=== PATIENT | male | born 1965 | race African-American/Black ===

== ENCOUNTER 2019-08-29 14:02 | Inpatient (IN) | payer MEDICAID ==
[~2019-08-29] VITALS: Ht 182.9 cm; Wt 100.2 kg
[2019-08-29] MEDS ORDERED: SODIUM CHLORIDE 0.9% 1,000 ML IV ONE (14:37)
[2019-08-29] MEDS ORDERED: DILTIAZEM HCL 5MG/ML 5ML VIAL IV ONE (15:15)
[2019-08-29] MEDS ORDERED: ASPIRIN 81MG TABLET PO ONE (15:30)
[2019-08-29 15:52] LABS: CLARITY URINE CLEAR (CLEAR); COLOR URINE YELLOW (YELLOW); KETONES URINE NEGATIVE (NEGATIVE); LEUKOCYTE ESTERASE URINE NEGATIVE (NEGATIVE); NITRITE URINE NEGATIVE (NEGATIVE); OCCULT BLOOD URINE NEGATIVE (NEGATIVE); PROTEIN URINE NEGATIVE (NEGATIVE); SPECIFIC GRAVITY URINE 1.008 (1.005-1.030); UROBILINOGEN URINE 0.2 E.U./dL (0.2-1.0)
[2019-08-29 16:04] LABS: BASOPHILS % 0.7 % (0.0-2.0); EOSINOPHILS % 2.6 % (0.0-5.0); HEMATOCRIT. 42.6 % (42.0-52.0); HEMOGLOBIN. 14.6 g/dL (14.0-18.0); LYMPHOCYTES % 33.5 % (20.0-50.0); MEAN CORPUSCULAR HEMOGLOBIN 29.8 pg (28.0-32.0); MEAN CORPUSCULAR VOLUME 86.8 fL (80.0-94.0); MONOCYTES % 7.3 % (2.0-8.0); NEUTROPHILS % 55.9 % (40.0-76.0); PLATELET 162 x1000/uL (130-400); RED BLOOD CELL COUNT 4.91 mill/uL (4.7-6.1); RED CELL DISTRIBUTION WIDTH 14.8 % (11.6-14.6)
[2019-08-29 16:07] LABS: *AMPHETAMINES SCREEN URINE NEGATIVE (NEGATIVE)
[2019-08-29 16:08] LABS: *BARBITURATES SCREEN URINE NEGATIVE (NEGATIVE); *BENZODIAZEPINES SCREEN URINE NEGATIVE (NEGATIVE); *COCAINE SCREEN URINE NEGATIVE (NEGATIVE); CANNABINOID URINE SCREEN PRESUMTIVE POSITIVE (NEGATIVE); METHADONE URINE SCREEN NEGATIVE (NEGATIVE); OPIATES URINE SCREEN NEGATIVE (NEGATIVE)
[2019-08-29 16:09] LABS: PHENCYCLIDINE URINE SCREEN NEGATIVE (NEGATIVE)
[2019-08-29 16:14] LABS: CHLORIDE 110 mEq/L (98-107)
[2019-08-29 16:22] LABS: ETHANOL BLOOD < 10 mg/dL
[2019-08-29 16:26] LABS: T4 FREE 1.04 ng/dL (0.76-1.46)
[2019-08-29] MEDS ORDERED: IPRATROPIUM/ALBUTEROL 0.5-3(2.5)MG/3ML NEB NEB PRN (18:00)
[2019-08-29] MEDS ORDERED: ACETAMINOPHEN 325MG TABLET PO PRN (18:00)
[2019-08-29] MEDS ORDERED: MAGNESIUM/ALUMINUM HYDROXIDE/SIMETHICONE 30ML UDC PO PRN (18:00)
[2019-08-29] MEDS ORDERED: DOCUSATE SODIUM 100MG CAPSULE PO PRN (18:00)
[2019-08-29] MEDS ORDERED: NITROGLYCERIN 0.4MG TABLET SL SL PRN (18:00)
[2019-08-29] MEDS ORDERED: LORAZEPAM 0.5MG TABLET PO PRN (18:00)
[2019-08-29] MEDS ORDERED: CLONIDINE 0.1MG TABLET PO PRN (18:00)
[2019-08-29] MEDS ORDERED: ONDANSETRON HCL 4MG/2ML INJ IV PRN (18:00)
[2019-08-29] MEDS ORDERED: GUAIFENESIN 200MG/10ML SUGAR FREE UDC PO PRN (18:00)
[2019-08-29 18:52] VITALS: BP 150/90
[2019-08-29] MEDS ORDERED: KETOROLAC 15MG/ML VIAL IV PRN (19:02)
[2019-08-29] MEDS ORDERED: BENA10TA74 MT (19:04)
[2019-08-29] MEDS ORDERED: ATOR20TA65 MT (19:04)
[2019-08-29] MEDS ORDERED: OMEP20CA14 MT (19:04)
[2019-08-29 19:14] VITALS: BP 159/90
[2019-08-29] MEDS ORDERED: INFLUENZA VIRUS VACCINE(AFLURIA) 0.5ML SYR IM ONE (20:00)
[2019-08-29 20:16] VITALS: BP 165/69
[2019-08-29 20:21] VITALS: BP 148/92
[2019-08-29] MEDS ORDERED: ZOLPIDEM TARTRATE 5MG TABLET PO PRN (21:00)
[2019-08-29] MEDS: DILTIAZEM HCL 60MG TABLET PO SCH (21:19)
[2019-08-29] MEDS: ENOXAPARIN 30MG/0.3ML SYR SUBCUT SCH (21:20)
[2019-08-29] MEDS: FAMOTIDINE 20MG TABLET PO SCH (21:27)
[2019-08-30 00:20] VITALS: BP 111/71
[2019-08-30] MEDS: DILTIAZEM HCL 60MG TABLET PO SCH ×2 (00:36→06:14)
[2019-08-30 00:42] LABS: CREATINE KINASE MB FRACTION 1.8 ng/mL (0.5-3.6)
[2019-08-30 03:30] VITALS: BP 138/69
[2019-08-30 06:55] LABS: CREATINE KINASE MB FRACTION 1.7 ng/mL (0.5-3.6)
[2019-08-30 08:00] VITALS: BP 124/92
[2019-08-30] MEDS: FAMOTIDINE 20MG TABLET PO SCH ×2 (09:07→21:22)
[2019-08-30] MEDS: ASPIRIN 325MG EC TABLET PO SCH (09:07)
[2019-08-30] MEDS: ENOXAPARIN 30MG/0.3ML SYR SUBCUT SCH ×2 (09:15→21:24)
[2019-08-30 11:30] LABS: CHLORIDE 112 mEq/L (98-107)
[2019-08-30 12:00] VITALS: BP 148/88
[2019-08-30] MEDS: METOPROLOL TARTRATE 50MG TABLET PO SCH ×2 (12:43→21:22)
[2019-08-30 16:00] VITALS: BP 150/91
[2019-08-30 20:00] VITALS: BP 142/95
[2019-08-31] VITALS: BP 135/88
[2019-08-31 04:00] VITALS: BP 124/85
[2019-08-31 08:00] VITALS: BP 124/81
[2019-08-31] MEDS: METOPROLOL TARTRATE 50MG TABLET PO SCH (09:00)
[2019-08-31] MEDS: ASPIRIN 325MG EC TABLET PO SCH (09:15)
[2019-08-31] MEDS: FAMOTIDINE 20MG TABLET PO SCH (09:15)
[2019-08-31] MEDS: ENOXAPARIN 30MG/0.3ML SYR SUBCUT SCH (09:16)
[2019-08-31 12:00] VITALS: BP 135/95
== END 2019-08-31 14:51 | disposition home or self-care (01) | DRG 201 ==
LOC: ER 14:02 → 6WST 16:35 → EDBEDREQ 16:37 → EDBEDREQTM 16:37 → ENRESERV 17:45
PROVIDERS: ADMIT Internal Medicine; ATTEND Internal Medicine
DX: I47.1 Supraventricular tachycardia (principal); E87.8 Other disorders of electrolyte and fluid balance, not elsewhere classified; E11.9 Type 2 diabetes mellitus without complications; E66.9 Obesity, unspecified; I10 Essential (primary) hypertension; F12.10 Cannabis abuse, uncomplicated; E78.00 Pure hypercholesterolemia, unspecified; F51.04 Psychophysiologic insomnia; F17.210 Nicotine dependence, cigarettes, uncomplicated; Z68.30 Body mass index [BMI] 30.0-30.9, adult
CPT/HCPCS: 36415; 71045; 80048; 80053; 80061; 80305; 80320; 81003; 82550; 82553; 83036; 83735; 83880; 84439; 84443; 84484; 85025; 90686; 93005; 93306; 93970; 96374; 99291; J1650; J2405; J3490; J7030; G0480

== ENCOUNTER 2021-05-16 10:27 | Emergency (ER) | payer MEDICAID ==
[~2021-05-16] VITALS: Ht 170.2 cm; Wt 82.0 kg
[~2021-05-16 10:27] MED LIST: ATOR20TA65 MT; OMEP20CA14 MT
[2021-05-16 11:06] LABS: BASOPHILS % 0.9 % (0.0-2.0); EOSINOPHILS % 6.6 % (0.0-5.0); HEMATOCRIT. 43.2 % (42.0-52.0); HEMOGLOBIN. 14.5 g/dL (14.0-18.0); LYMPHOCYTES % 39.4 % (20.0-50.0); MEAN CORPUSCULAR HEMOGLOBIN 29.3 pg (28.0-32.0); MEAN CORPUSCULAR VOLUME 87.2 fL (80.0-94.0); MEAN PLATELET VOLUME 9.5 fl (7.4-10.4); MONOCYTES % 8.1 % (2.0-8.0); PLATELET 159 x1000/uL (130-400); RED BLOOD CELL COUNT 4.96 mill/uL (4.7-6.1)
[2021-05-16 11:11] LABS: CHLORIDE 109 mEq/L (98-107)
[2021-05-16 12:18] LABS: CLARITY URINE CLEAR (CLEAR); COLOR URINE YELLOW (YELLOW); KETONES URINE NEGATIVE (NEGATIVE); LEUKOCYTE ESTERASE URINE NEGATIVE (NEGATIVE); NITRITE URINE NEGATIVE (NEGATIVE); OCCULT BLOOD URINE NEGATIVE (NEGATIVE); PROTEIN URINE NEGATIVE (NEGATIVE); SPECIFIC GRAVITY URINE 1.009 (1.005-1.030); UROBILINOGEN URINE 0.2 E.U./dL (0.2-1.0)
[2021-05-16 12:44] VITALS: BP 162/99
[2021-05-16 13:08] LABS: METHADONE URINE SCREEN NEGATIVE (NEGATIVE); OPIATES URINE SCREEN NEGATIVE (NEGATIVE)
[2021-05-16 13:09] LABS: *AMPHETAMINES SCREEN URINE NEGATIVE (NEGATIVE); *BARBITURATES SCREEN URINE NEGATIVE (NEGATIVE); *BENZODIAZEPINES SCREEN URINE NEGATIVE (NEGATIVE); *COCAINE SCREEN URINE NEGATIVE (NEGATIVE); CANNABINOID URINE SCREEN PRESUMTIVE POSITIVE (NEGATIVE); PHENCYCLIDINE URINE SCREEN NEGATIVE (NEGATIVE)
== END 2021-05-16 12:50 | disposition home or self-care (01) ==
LOC: ER 10:51
DX: I47.1 Supraventricular tachycardia (principal); I10 Essential (primary) hypertension; E11.9 Type 2 diabetes mellitus without complications; Z98.890 Other specified postprocedural states
CPT/HCPCS: 36415; 71045; 80053; 80305; 81003; 83880; 84484; 85025; 93005; 99285

== ENCOUNTER 2021-11-10 10:03 | Emergency (ER) | payer MEDICAID ==
[~2021-11-10] VITALS: Ht 177.8 cm; Wt 100.0 kg
[2021-11-10 10:42] LABS: BASOPHILS % 0.7 % (0.0-2.0); EOSINOPHILS % 7.3 % (0.0-5.0); HEMATOCRIT. 40.8 % (42.0-52.0); HEMOGLOBIN. 13.5 g/dL (14.0-18.0); LYMPHOCYTES % 38.3 % (20.0-50.0); MEAN CORPUSCULAR HEMOGLOBIN 28.5 pg (28.0-32.0); MEAN CORPUSCULAR VOLUME 86.2 fL (80.0-94.0); MONOCYTES % 11.4 % (2.0-8.0); NEUTROPHILS % 42.3 % (40.0-76.0); PLATELET 148 x1000/uL (130-400); RED BLOOD CELL COUNT 4.74 mill/uL (4.7-6.1); RED CELL DISTRIBUTION WIDTH 17.1 % (11.6-14.6)
[2021-11-10 10:52] LABS: CHLORIDE 110 mEq/L (98-107); PARTIAL THROMBOPLASTIN TIME 30.7 sec (23.4-31.0); PROTHROMBIN TIME 10.5 sec (9.6-11.0)
[2021-11-10 10:57] LABS: ETHANOL BLOOD < 10 mg/dL
[2021-11-10 11:10] LABS: *AMPHETAMINES SCREEN URINE NEGATIVE (NEGATIVE)
[2021-11-10 11:11] LABS: *BARBITURATES SCREEN URINE NEGATIVE (NEGATIVE); *BENZODIAZEPINES SCREEN URINE NEGATIVE (NEGATIVE); *COCAINE SCREEN URINE NEGATIVE (NEGATIVE); METHADONE URINE SCREEN NEGATIVE (NEGATIVE); OPIATES URINE SCREEN NEGATIVE (NEGATIVE); PHENCYCLIDINE URINE SCREEN NEGATIVE (NEGATIVE)
[2021-11-10 11:12] LABS: CANNABINOID URINE SCREEN PRESUMTIVE POSITIVE (NEGATIVE)
[2021-11-10 12:01] VITALS: BP 152/103
== END 2021-11-10 12:06 | disposition home or self-care (01) ==
LOC: ER 10:03 → CANBEDREQ 20:20
DX: I47.1 Supraventricular tachycardia (principal); I10 Essential (primary) hypertension; E11.9 Type 2 diabetes mellitus without complications; Z20.822 Contact with and (suspected) exposure to COVID-19; Z98.890 Other specified postprocedural states
CPT/HCPCS: 36415; 71045; 80053; 80305; 80320; 83735; 83880; 84484; 85025; 87426; 93005; 99284; G0480

== ENCOUNTER 2022-10-20 23:40 | Inpatient (IN) | payer MEDICAID ==
[~2022-10-20] VITALS: Ht 172.7 cm; Wt 106.6 kg
[2022-10-21 01:08] LABS: BASOPHILS % 0.6 % (0.0-2.0); EOSINOPHILS % 5.5 % (0.0-5.0); HEMATOCRIT. 40.5 % (42.0-52.0); HEMOGLOBIN. 13.4 g/dL (14.0-18.0); MEAN CORPUSCULAR HEMOGLOBIN 28.7 pg (28.0-32.0); MEAN CORPUSCULAR VOLUME 87.1 fL (80.0-94.0); MEAN PLATELET VOLUME 8.1 fl (7.4-10.4); MONOCYTES % 7.4 % (2.0-8.0); NEUTROPHILS % 59.5 % (40.0-76.0); PLATELET 157 x1000/uL (130-400); RED BLOOD CELL COUNT 4.65 mill/uL (4.7-6.1); RED CELL DISTRIBUTION WIDTH 15.8 % (11.6-14.6)
[2022-10-21 01:14] LABS: CHLORIDE 108 mEq/L (98-107)
[2022-10-21] MEDS ORDERED: HYDRALAZINE 20MG/ML VIAL IV ONE (01:45)
[2022-10-21] MEDS ORDERED: LABETALOL 5MG/ML SYR 20 MG/4 ML SYRINGE IV ONE (03:15)
[2022-10-21] MEDS ORDERED: DIPHENHYDRAMINE 50MG/ML VIAL IV PRN (10:00)
[2022-10-21] MEDS ORDERED: IPRATROPIUM/ALBUTEROL 0.5-3(2.5)MG/3ML NEB HHN PRN (10:00)
[2022-10-21] MEDS ORDERED: ONDANSETRON HCL 4MG/2ML INJ IV PRN (10:00)
[2022-10-21] MEDS ORDERED: ALBUTEROL (0.083%) 2.5MG/3ML NEB HHN PRN (10:15)
[2022-10-21] MEDS ORDERED: IPRATROPIUM BROMIDE (0.02%) 0.5MG/2.5ML NEB HHN PRN (10:15)
[2022-10-21] MEDS: CLONIDINE 0.1MG TABLET PO PRN (10:30)
[2022-10-21] MEDS ORDERED: DEXTROSE 50% WATER 50ML SYRINGE IV PRN (10:45)
[2022-10-21] MEDS: BLOOD SUGAR DIAGNOSTIC STRIP TEST SCH ×3 (12:01→21:11)
[2022-10-21] MEDS ORDERED: ENOXAPARIN 100MG/ML SYR SUBCUT SCH (13:00)
[2022-10-21] MEDS: INSULIN LISPRO 100 UNITS/ML SUBCUT SCH ×3 (13:51→21:00)
[2022-10-21 15:02] LABS: T4 FREE 1.05 ng/dL (0.76-1.46)
[2022-10-21 15:56] LABS: PROTHROMBIN TIME 10.9 sec (9.6-11.0)
[2022-10-21] MEDS ORDERED: RIVA20TA MT ×2 (16:09→17:37)
[2022-10-21] MEDS ORDERED: METF-873 MT (16:09)
[2022-10-21 16:29] VITALS: BP 155/106
[2022-10-21 17:00] VITALS: BP 155/106
[2022-10-21] MEDS: DILTIAZEM HCL 30MG TABLET PO SCH ×2 (17:04→23:38)
[2022-10-21] MEDS: METFORMIN HCL 500MG TABLET PO SCH (17:04)
[2022-10-21] MEDS ORDERED: ATOR40TA70 MT (17:37)
[2022-10-21] MEDS ORDERED: GLIM2TAB30 MT (17:37)
[2022-10-21] MEDS ORDERED: MULT-622 MT (17:37)
[2022-10-21] MEDS ORDERED: METF-416 MT (17:37)
[2022-10-21] MEDS ORDERED: BENA10TA74 MT (17:37)
[2022-10-21] MEDS ORDERED: METO-385 MT (17:37)
[2022-10-21 18:47] LABS: HEPATITIS B SURFACE ANTIGEN NEGATIVE
[2022-10-21 20:00] VITALS: BP 138/97
[2022-10-21] MEDS ORDERED: ATORVASTATIN CALCIUM 20MG TABLET PO SCH (21:00)
[2022-10-21] MEDS: METOPROLOL TARTRATE 50MG TABLET PO SCH (21:11)
[2022-10-21] MEDS: ATORVASTATIN CALCIUM 40MG TABLET PO SCH (21:11)
[2022-10-21] MEDS: ACETAMINOPHEN 325MG TABLET PO PRN (21:59)
[2022-10-21] MEDS: ENOXAPARIN 100MG/ML SYR SUBCUT SCH (23:38)
[2022-10-22] VITALS (7 sets, daily range): BP systolic 131–168; BP diastolic 49–113
[2022-10-22 06:23] LABS: BASOPHILS % 0.3 % (0.0-2.0); EOSINOPHILS % 6.1 % (0.0-5.0); HEMATOCRIT. 42.1 % (42.0-52.0); HEMOGLOBIN. 14.2 g/dL (14.0-18.0); LYMPHOCYTES % 43.4 % (20.0-50.0); MEAN CORPUSCULAR HEMOGLOBIN 29.3 pg (28.0-32.0); MEAN CORPUSCULAR VOLUME 87.1 fL (80.0-94.0); MEAN PLATELET VOLUME 8.4 fl (7.4-10.4); MONOCYTES % 9.5 % (2.0-8.0); NEUTROPHILS % 40.7 % (40.0-76.0); PLATELET 164 x1000/uL (130-400); RED BLOOD CELL COUNT 4.83 mill/uL (4.7-6.1)
[2022-10-22] MEDS: DILTIAZEM HCL 30MG TABLET PO SCH ×3 (06:29→18:03)
[2022-10-22] MEDS: BLOOD SUGAR DIAGNOSTIC STRIP TEST SCH ×4 (06:30→21:31)
[2022-10-22] MEDS: INSULIN LISPRO 100 UNITS/ML SUBCUT SCH ×4 (08:10→21:31)
[2022-10-22 08:19] LABS: CHLORIDE 104 mEq/L (98-107)
[2022-10-22] MEDS: METFORMIN HCL 500MG TABLET PO SCH ×2 (08:23→18:03)
[2022-10-22] MEDS: BENAZEPRIL 5MG TABLET PO SCH (08:23)
[2022-10-22] MEDS: METOPROLOL TARTRATE 50MG TABLET PO SCH ×2 (08:24→21:29)
[2022-10-22] MEDS: ENOXAPARIN 100MG/ML SYR SUBCUT SCH (08:24)
[2022-10-22] MEDS: GLIMEPIRIDE 2MG TABLET PO SCH (08:24)
[2022-10-22] MEDS: CLONIDINE 0.1MG TABLET PO PRN ×2 (10:17→18:03)
[2022-10-22] MEDS ORDERED: BENA10TA74 MT (12:27)
[2022-10-22] MEDS ORDERED: METO-539 PO (12:27)
[2022-10-22] MEDS ORDERED: CARSR60 MT (12:27)
[2022-10-22] MEDS: ACETAMINOPHEN 325MG TABLET PO PRN (12:41)
[2022-10-22] MEDS: ATORVASTATIN CALCIUM 40MG TABLET PO SCH (21:29)
[2022-10-22] MEDS: ENOXAPARIN 120MG/0.8ML SYR SUBCUT SCH (21:57)
[2022-10-23] VITALS: BP 128/99
[2022-10-23] MEDS: DILTIAZEM HCL 30MG TABLET PO SCH ×2 (00:52→06:35)
[2022-10-23 04:00] VITALS: BP 146/97
[2022-10-23] MEDS: GLIMEPIRIDE 2MG TABLET PO SCH (06:36)
[2022-10-23] MEDS: BLOOD SUGAR DIAGNOSTIC STRIP TEST SCH (06:36)
[2022-10-23 08:00] VITALS: BP 162/111
[2022-10-23] MEDS: METFORMIN HCL 500MG TABLET PO SCH (08:09)
[2022-10-23] MEDS: METOPROLOL TARTRATE 50MG TABLET PO SCH (08:09)
[2022-10-23] MEDS: BENAZEPRIL 5MG TABLET PO SCH (08:10)
[2022-10-23] MEDS: ENOXAPARIN 120MG/0.8ML SYR SUBCUT SCH (08:10)
[2022-10-23] MEDS: INSULIN LISPRO 100 UNITS/ML SUBCUT SCH (08:10)
[2022-10-23] MEDS: CLONIDINE 0.1MG TABLET PO PRN (08:12)
[2022-10-23] MEDS ORDERED: METOPROLOL TARTRATE 50MG TABLET PO NR (09:30)
[2022-10-23] MEDS ORDERED: METOPROLOL TARTRATE 100MG TABLET PO SCH (21:00)
== END 2022-10-23 10:08 | disposition home or self-care (01) | DRG 201 ==
LOC: ER 23:58 → MICUSO 10-21 04:42 → EDBEDREQTM 10-21 04:45 → EDBEDREQ 10-21 04:45 → 7WST 10-21 15:41
PROVIDERS: ADMIT Internal Medicine; ATTEND Internal Medicine
DX: I48.0 Paroxysmal atrial fibrillation (principal); D68.69 Other thrombophilia; I50.9 Heart failure, unspecified; I11.0 Hypertensive heart disease with heart failure; E11.9 Type 2 diabetes mellitus without complications; I44.4 Left anterior fascicular block; E78.5 Hyperlipidemia, unspecified; I10 Essential (primary) hypertension; F17.200 Nicotine dependence, unspecified, uncomplicated; Z79.01 Long term (current) use of anticoagulants
CPT/HCPCS: 36415; 71045; 80048; 80053; 80061; 82962; 83036; 83735; 84439; 84443; 84480; 84484; 85025; 86803; 87340; 93005; 93306; 93970; 99291; J0360; J1650; J1815; J2405; J3490